=== PATIENT | male | born 1995 | race African-American/Black ===

== ENCOUNTER 2021-05-25 12:11 | Emergency (ER) | payer OTHER ==
[~2021-05-25] VITALS: Ht 188 cm; Wt 83.9 kg
--- NOTE | 2021-05-25 14:00 | NUR ---
PT WAS EVALUATED BY DR REYNOSO. PT WAS D/C'd TO HOME. D/C INSTRUCTIONS GIVEN TO THE PT BY DR REYNOSO.
[2021-05-25 14:01] VITALS: BP 126/71
== END 2021-05-25 14:02 | disposition home or self-care (01) ==
LOC: ER 12:11
DX: I88.8 Other nonspecific lymphadenitis (principal)
CPT/HCPCS: 70490; A4663

== ENCOUNTER 2021-06-03 15:36 | Emergency (ER) | payer OTHER ==
[~2021-06-03] VITALS: Ht 188 cm; Wt 83.9 kg
[2021-06-03 16:20] LABS: HEMATOCRIT 44.1 % (36.7-47.1); MEAN CORPUSCULAR VOLUME 88.8 fL (73.0-96.2); PLATELET COUNT (AUTO) 289 K/uL (152-348)
[2021-06-03] MEDS ORDERED: AZIT250T13 PO (16:40)
--- NOTE | 2021-06-03 16:49 | NUR ---
Patient discharged to home in stable condition. Written and verbal after care instructions given. Patient verbalizes understanding of instructions. Stressed follow up or return to ER for worsening s/s.
== END 2021-06-03 16:49 | disposition home or self-care (01) ==
LOC: ER 15:36
DX: I88.9 Nonspecific lymphadenitis, unspecified (principal); J02.9 Acute pharyngitis, unspecified; Z86.16 Personal history of COVID-19; Z88.0 Allergy status to penicillin
CPT/HCPCS: 36415; 85025; A4663